=== PATIENT | male | born 2000 | race Hispanic/Latino ===

== ENCOUNTER 2023-12-17 10:26 | Emergency (ER) | payer OTHER ==
[~2023-12-17] VITALS: Ht 170.2 cm; Wt 129.6 kg
[2023-12-17] MEDS ORDERED: HADLIMA(CF40 MG/0.1 (10:38)
[2023-12-17] MEDS ORDERED: PREDNISONE20 MG PO (11:08)
[2023-12-17] MEDS ORDERED: ACETAMINOPHEN 500 MG TAB PO ONE (11:15)
[2023-12-17] MEDS ORDERED: predniSONE 20 MG TAB PO ONE (11:15)
[2023-12-17 11:18] VITALS: BP 120/66
== END 2023-12-17 11:18 | disposition home or self-care (01) ==
LOC: ED 10:26
DX: M79.672 Pain in left foot (principal); M79.671 Pain in right foot; M25.572 Pain in left ankle and joints of left foot; M25.571 Pain in right ankle and joints of right foot; M25.562 Pain in left knee; M25.561 Pain in right knee; L40.9 Psoriasis, unspecified; Z79.899 Other long term (current) drug therapy
CPT/HCPCS: 99283; A9270; J7512